=== PATIENT | female | born 1985 | race Caucasian/White ===

== ENCOUNTER 2017-10-14 20:30 | Emergency (ER) | payer MEDICARE, OTHER ==
[~2017-10-14 20:30] MED LIST: FIORIC PO; NORT1CAP53 PO
[2017-10-14 20:36] VITALS: BP 133/83; PULSE 88; RESP 20; TEMP 98.7; O2SAT 100
[2017-10-14] MEDS ORDERED: NORT25CA PO (21:03)
[2017-10-14 21:45] VITALS: BP 122/76; PULSE 77; RESP 16; O2SAT 100
--- NOTE | 2017-10-14 23:45 | PD ---
HPI Chief Complaint: Eye Problems/Injury Time Seen by Provider: 23:39 Travel History International Travel<30 days: No Contact w/Intl Traveler<30days: No Traveled to known affect area: No History of Present Illness HPI 32-year-old female presents to the emergency department for bilateral eye irritation after exposure to unknown chemical irritant at a local clothing store. Patient states that she had not touched any items in the store except for at the counter where she was looking for a telephone case for her family member. Patient does not recall touching any obvious chemical or liquid. Patient states that while she was looking for a telephone case she accidentally touched her face with her hand and immediately noticed a burning sensation to her right eye and then noticed a spreading to her left eye into her face. No lip tongue or throat swelling no urticaria and no allergic reaction type symptoms such as no near syncope syncope wheezing chest pain or abdominal pain cramping or diarrhea. Patient went immediately to the facilities restroom and flushed her eyes copiously with water and then washed her face with soap and rinsed it with water copiously. Patient subsequently decided to come to the emergency evaluation. She did mention this reaction for personnel and they denied any chemicals that are sprayed on any of the products or as cleaning products. Daughter also reportedly had mild reaction after helping her mother flushed face by touching her face and had some redness to her lower lip that resolved quickly. Patient does not have any chronic medical conditions and does not wear corrective lenses or contact lenses except for occasionally wears glasses for driving at night. Patient denies other concerns or complaints. Patient states now that she has been waiting to be seen in the emergency department approximately 2 hours symptoms have completely resolved she has no eye irritation and no facial irritation. [facility] Past Medical History Narrative Medical Left nephrectomy-donated; nursing notes reviewed Diminished Hearing: No Migraines: Yes Tetanus Vaccination: < 5 Years Influenza Vaccination: No ?: Unknown LMP: LAST WEEK : 0 Past Surgical History Genitourinary Surgery: Yes (LEFT KIDNEY DONATED) Social History Alcohol Use: Yes (OCCASIONAL) Tobacco Use: No Substance Use: No Allergies-Medications (Allergen,Severity, Reaction): Coded Allergies: iodine (Unverified Allergy, Severe, Anaphylaxis, 10/14/17) potassium iodide (Unverified Allergy, Severe, Anaphylaxis, 10/14/17) povidone-iodine (Unverified Allergy, Severe, Anaphylaxis, 10/14/17) sodium iodide (Unverified Allergy, Severe, Anaphylaxis, 10/14/17) sodium iodide (Unverified Allergy, Severe, Anaphylaxis, 10/14/17) Reported Meds & Prescriptions Reported Meds & Active Scripts Active Reported Nortriptyline (Nortriptyline HCl) 25 Mg Cap 25 Mg PO HS Review of Systems Except as stated in HPI: all other systems reviewed are Neg General / Constitutional: No: Fever, Chills Eyes: Positive: Blurred Vision, Redness, Foreign Body Sensation, Pain, Tearing , Visual changes, No: Diploplia, Photophobia, Blindness HENT: No: Headaches, Vertigo, Lightheadedness, Sore Throat Cardiovascular: No: Chest Pain or Discomfort, Palpitations, Diaphoresis, Syncope Respiratory: No: Shortness of Breath, Wheezing Gastrointestinal: No: Nausea, Vomiting Genitourinary: No: Flank Pain Musculoskeletal: No: Myalgias, Arthralgias Skin: No Rash Neurologic: No: Weakness, Dizziness, Syncope Psychiatric: Positive: Anxiety Endocrine: No: Heat Intolerance, Cold Intolerance Hematologic/Lymphatic: No: Easy Bruising Physical Exam Narrative GENERAL: Well-developed well-nourished female no acute distress no respiratory distress; GCS 15 SKIN: Warm and dry. No erythema no urticaria no vesicles no pustules no evidence of induration warmth partial-thickness or full-thickness burn HEAD: Normocephalic. EYES: No scleral icterus. No injection or drainage. No redness no injection no drainage no fluorescein uptake no dendritic changes no gross hyphema no foreign body no upper or lower lid edema or erythema NECK: Supple, trachea midline. No JVD or lymphadenopathy. CARDIOVASCULAR: Regular rate and rhythm without murmurs, gallops, or rubs. RESPIRATORY: Breath sounds equal bilaterally. No accessory muscle use. GASTROINTESTINAL: Abdomen soft, non-tender, nondistended. MUSCULOSKELETAL: No cyanosis, or edema. BACK: Nontender without obvious deformity. No CVA tenderness. Data Data Last Documented VS Vital Signs Date Time Temp Pulse Resp B/P (MAP) Pulse Ox O2 Delivery O2 Flow Rate FiO2 10/14/17 23:49 96 18 124/78 (93) 98 10/14/17 21:45 Room Air 10/14/17 20:36 98.7 Orders Orders Ed Discharge Order (10/14/17 23:39) MDM Medical Decision Making Medical Screen Exam Complete: Yes Emergency Medical Condition: Yes Medical Record Reviewed: Yes Differential Diagnosis Contact dermatitis contact conjunctivitis allergic conjunctivitis irritant contact dermatitis Narrative Course Patient with recent exposure to unknown irritant with associated immediate burning sensation and redness of eyes and face appropriately intervened with flushing eyes copiously and using soap and water to wash face and hands subsequently symptoms have resolved. Normal pH of eyes. 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 Pederson Return to the emergency department for any concerns or change in condition Disposition: 01 DISCHARGE HOME Condition: Stable Sheryl Aceves MD Oct 14, 2017 23:45
[2017-10-14 23:49] VITALS: BP 124/78
== END 2017-10-15 00:04 | disposition home or self-care (01) ==
LOC: PHED 20:30
DX: H10.213 Acute toxic conjunctivitis, bilateral (principal); L24.5 Irritant contact dermatitis due to other chemical products; Z79.899 Other long term (current) drug therapy; Z88.8 Allergy status to other drugs, medicaments and biological substances
CPT/HCPCS: 99283